=== PATIENT | male | born 1975 | race Caucasian/White ===

== ENCOUNTER 2025-05-26 07:48 | Emergency (ER) | payer BC ==
[~2025-05-26] VITALS: Ht 175.3 cm; Wt 89.0 kg
[2025-05-26 07:53] VITALS: O2SAT 100
[2025-05-26 10:56] LABS: CLARITY URINE CLEAR (CLEAR); COLOR URINE YELLOW (YELLOW); GLUCOSE URINE NEGATIVE (NEGATIVE); KETONES URINE NEGATIVE (NEGATIVE); LEUKOCYTE ESTERASE URINE NEGATIVE (NEGATIVE); NITRITE URINE NEGATIVE (NEGATIVE); OCCULT BLOOD URINE NEGATIVE (NEGATIVE); PH URINE 6.5 (4.5-8.0); PROTEIN URINE NEGATIVE (NEGATIVE); SPECIFIC GRAVITY URINE 1.014 (1.005-1.030); UROBILINOGEN URINE 0.2 E.U./dL (0.2-1.0)
[2025-05-26] MEDS: AZITHROMYCIN 500 MG TABLET PO ONE (12:13)
[2025-05-26 12:53] VITALS: BP 150/86; PULSE 85; RESP 16; TEMP 36.8; O2SAT 100
== END 2025-05-26 12:55 | disposition home or self-care (01) ==
LOC: ER 07:57
DX: N43.3 Hydrocele, unspecified (principal); R07.9 Chest pain, unspecified
CPT/HCPCS: 76870; 81003; 93005; 93976; 99284